=== PATIENT | male | born 1970 | race Caucasian/White ===

== ENCOUNTER 2022-10-04 13:22 | Emergency (ER) | payer OTHER, SELFPAY ==
--- NOTE | ~2022-10-04 | CT_ITS ---
EXAMINATION: CT cervical spine wo con DATE: 10/04/2022 15:04 INDICATION: Midline tenderness at C6. TECHNIQUE: Computed tomography (CT) of the cervical spine was performed without intravenous contrast. The dose-length product was 499 mGy-cm. Automated exposure control and iterative reconstruction tech nique were employed. COMPARISON: None FINDINGS: There is a subtle heterogeneous soft tissue mass involving the posterior elements of C5 pretty suring approximately 3 cm greatest dimension on sagittal images. There is subtle advancement of the m ass anteriorly into the spinal canal causing central canal stenosis. There is lytic destruction of th e C5 spinous process. There is moderate degenerative disc disease and endplate degenerative change at C5-6 and C6-7. Odontoid process is normal. There is multilevel uncinate hypertrophy, most advanced a t C5-6 and C6-7. Craniovertebral junction within normal limits. There are small bilateral supraclavic ular lymph nodes which are nonspecific. Lung apices are unremarkable. IMPRESSION: 1. Subtle mass involving the posterior elements of C5 with lytic destruction and associated central c anal stenosis, suspicious for metastatic disease. Correlate for history of malignancy. Recommend sherly elation with MRI of the cervical spine without and with contrast. Reviewed, dictated and finalized at location A. 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 Subtle mass involving the posterior elements of C5 with lytic destruction an d associated central canal stenosis, suspicious for metastatic disease. Correla te for history of malignancy. Recommend correlation with MRI of the cervical sp ine without and with contrast.
--- NOTE | ~2022-10-04 | XR_ITS ---
EXAMINATION: XR chest 2V DATE: 10/04/2022 15:49 INDICATION: Lytic mass of the spine on CT TECHNIQUE: PA and lateral views of the chest are obtained. COMPARISON: None available FINDINGS: The lungs are free of acute opacities. No pleural effusion or pneumothorax. The cardiomedia stinal silhouette is normal. There is mild thoracic spondylosis. IMPRESSION: 1. No acute cardiopulmonary abnormality. Reviewed, dictated and finalized at location A.
--- NOTE | ~2022-10-04 | CT_ITS ---
EXAMINATION: CT BRAIN W/O DATE: 10/04/2022 18:06 INDICATION: Lytic lesion seen in the cervical spine. Possible metastatic disease. TECHNIQUE: Computed tomography (CT) of the head was performed without intravenous contrast. The dose- length product was 605.33 mGy-cm. Automated exposure control and iterative reconstruction technique w ere employed. COMPARISON: No prior studies for comparison. FINDINGS: Normal brain parenchymal volume for age. Normal ruiz-white differentiation. No acute intrac ranial hemorrhage, infarction, mass or mass effect. No ventriculomegaly or midline shift. Midline sagittal images demonstrate a normal corpus callosum, c raniovertebral junction and sella turcica. Basilar cisterns are patent. Paranasal sinuses and mastoids are pneumatized. No depressed skull fractures. IMPRESSION: 1. No acute intracranial abnormality. Reviewed, dictated and finalized at location A. T CAKE CUTTER
--- NOTE | ~2022-10-04 | CT_ITS ---
EXAMINATION: CT chest abdomen pelvis w con DATE: 10/04/2022 18:21 HIRED HELP INDICATION: Lytic mass involving the cervical spine. Possible metastatic disease. TECHNIQUE: Computed tomography (CT) of the chest, abdomen, and pelvis was performed with 100 cc Omnip aque 350 intravenous contrast. The dose-length product was 1465.02 mGy-cm. Automated exposure control and iterative reconstruction technique were employed. COMPARISON: None FINDINGS: CHEST CT: Heart size is normal. No significant vascular abnormality. No thoracic lymphadenopathy. No significan t pleural or pericardial effusion. There is a 4 mm right upper lobe nodule. There are additional righ t upper lobe nodules measuring 2 mm or less. There is a 3 mm left upper lobe nodule adjacent to the a shadia. No pneumothorax. No focal consolidation. No lytic or blastic lesions are seen. Mild thoracic an d lumbar spondylosis. There is bilateral gynecomastia. ABDOMEN/PELVIS CT: There is a complex heterogeneously enhancing exophytic right renal mass measuring 8 x 6 x 6.4 cm with adjacent neovascularity. This mass is compatible with renal cell carcinoma until proven otherwise. T here is a smaller 9 mm exophytic right renal lesion posteriorly, too small to characterize. There is nonobstructing 3 mm left renal stone. No left renal mass or hydronephrosis. The liver, spleen, pancreas, adrenal glands are unremarkable. Gallbladder is present. Nonobstructive bowel gas pattern. Normal appendix. No significant lymphadenopathy. No abnormal pelvic masses or flui d collections. Prostate gland mildly prominent. IMPRESSION: 1. Large complex exophytic right renal mass measuring up to 8 cm, compatible with renal cell carcinom a until proven otherwise. 2: Small bilateral pulmonary nodules measuring 4 mm or less. These are likely benign, although metas tatic disease is not excluded. Reviewed, dictated and finalized at location A. D HELP IMPRESSION: 1. Large complex exophytic right renal mass measuring up to 8 cm, compatible wi th renal cell carcinoma until proven otherwise. 2: Small bilateral pulmonary nodules measuring 4 mm or less. These are likely benign, although metastatic disease is not excluded.
[2022-10-04 13:25] VITALS: BP 141/97; PULSE 88; RESP 14; TEMP 36.9; O2SAT 100
--- NOTE | 2022-10-04 14:52 | ED.BACK ---
HPI - Back Pain/Injury General Chief Complaint: Back Pain/Injury Stated Complaint: upper back pain X1 week Time Seen by Provider: 10/04/22 14:29 History of Present Illness HPI Narrative: Patient is a 52-year-old male here for evaluation of upper back pain for the past 4 days. Reports he was lifting heavy objects prior to onset of pain. Also believed that he slept with too many pillows. States pain has been getting worse over the past several days, worse with flexion of his neck. Pain also occasionally radiates into his upper extremities described as sharp and shooting. Attempted Tylenol without relief. No fevers, chills, nausea, vomiting, systemic symptoms. Related Data Allergies Allergy/AdvReac Type Severity Reaction Status Date / Time No Known Allergies Allergy Verified 10/04/22 13:23 Review of Systems Review of Systems: Gen.: Denies fevers or chills Eyes: Denies eye pain or visual change ENT: Denies congestion Respiratory: Denies shortness of breath or cough CV: Denies chest pain or palpitations GI: Reports abdominal pain nausea, emesis or diarrhea : denies burning, urgency, frequency or hematuria Musculoskeletal: Reports neck pain Neuro: Denies numbness, tingling, weakness or focal weakness Skin: Denies rash 10 point review of systems negative, other than as per history of present illness, past medical history and other positives and review of systems Exam Narrative: APPEARANCE: Well appearing, no pain in distress, well-nourished. Head: Normocephalic and atraumatic. EYES: PERRLA/EOMI, conjunctivae clear NOSE: No nasal drainage EARS: External ear normal in appearance THROAT: Oropharynx is clear. Mucous membranes are moist. NECK: Tender to palpation along midline of C6, full range of motion in neck notes pain with lateral rotation RESPIRATORY: Airway patent, respirations nonlabored. Clear to auscultation bilaterally, no rales, rhonchi, wheezing. CARDIOVASCULAR: Regular rate and rhythm without murmurs, rubs, or gallops. ABDOMINAL: Normoactive bowel sounds. Soft, nontender, nondistended. No rebound tenderness or guarding. MUSCULOSKELETAL: Extremities are warm and well-perfused. Moves all extremities well. No edema. NEURO: Normal speech. No focal neurologic deficits. SKIN: Skin is warm and dry. No rashes. PSYCHIATRIC: Normal affect/mood. Course Vital Signs Vital signs: Vital Signs Temperature 98.4 F 10/04/22 13:25 Pulse Rate 88 10/04/22 13:25 Respiratory Rate 14 10/04/22 13:25 Blood Pressure 141/97 H 10/04/22 13:25 Pulse Oximetry 100 10/04/22 13:25 Oxygen Delivery Room Air 10/04/22 13:25 Temperature 98.4 F 10/04/22 13:25 Pulse Rate 86 10/04/22 18:29 Respiratory Rate 18 10/04/22 18:29 Blood Pressure 138/88 10/04/22 18:29 Pulse Oximetry 98 10/04/22 18:29 Oxygen Delivery Room Air 10/04/22 13:25 MDM - Back Pain/Injury MDM Narrative Medical decision making narrative: 52-year-old male here for evaluation of atraumatic posterior neck pain over the past several days. Tender to palpation along midline of C5 and C6. CT C-spine shows lytic lesions concerning for metastatic disease. Patient is unaware of any cancer diagnosis and has not seen a doctor in many years. Chest x-ray without acute findings. Spoke with Dr. Mendes, PCP supervisor car installations, who recommends CT brain, chest abdomen pelvis to look for primary malignancy. Findings do show a possible renal cell carcinoma and several lung nodules are likely benign but unable to exclude underlying malignancy. He is endorsing some hematuria. Patient feeling much better after pain medicine in the ED. Had a long discussion with patient about next steps and severity of findings; admission was offered which he declined; feeling much better after pain meds and wants to go home. Agrees with plan for outpatient work-up and understands he needs to follow up with the primary doctor and also Dr. Glasgow for further eval. Return precautions were discuss
[2022-10-04] MEDS: KETOROLAC 30 MG/ML VIAL (*BKC) IM (15:59)
[2022-10-04] MEDS: CYCLOBENZAPRINE HCL 5 MG TABLET PO (16:00)
[2022-10-04] MEDS: HYDROcodone/acetaminophen (*CRX) 5-325 MG TABLET 1 TAB PO (16:17)
[2022-10-04 16:18] VITALS: BP 139/89; PULSE 63; RESP 18; O2SAT 100
[2022-10-04 16:28] LABS: Basophils Absolute Auto 0.1 K/mm3 (0.0-0.1); Basophils Percent Auto 1.1 % (0.2-1.2); Eosinophils Absolute Auto 0.3 K/mm3 (0-0.3); Eosinophils Percent Auto 4.8 % (0-4.4); Hematocrit 42.5 % (42.0-52.0); Hemoglobin 14.3 g/dL (14.0-18.0); Immature Granulocyte Absolute 0.02 K/mm3 (0.00-0.031); Immature Granulocyte Percent A 0.3 % (0-0.5); Lymphocytes Absolute Auto 3.24 K/mm3 (0.9-3.2); Lymphocytes Percent Auto 46.2 % (18.3-44.2); Mean Corpuscular HGB Conc 33.6 g/dl (32-36); Mean Corpuscular Volume 86.2 fl (80-100); Mean Platelet Volume 10.9 fl (7.4-10.4); Monocytes Absolute Auto 0.3 K/mm3 (0.1-0.6); Monocytes Percent Auto 4.7 % (2.6-8.5); Neutrophils Percent Auto 42.9 % (45.5-73.1); Platelet Count Result 165 k/mm3 (150-375); Red Blood Count 4.93 M/mm3 (4.6-6.20); Red Cell Distribution Width 12.9 % (11.5-14.5)
--- NOTE | 2022-10-04 16:42 | PC.NURSE ---
This RN spoke to Vilma via phone per pts permission and updated on pt POC. Vilma will come to pick pt up from ER at time of discharge.
[2022-10-04 16:43] LABS: Alanine Aminotransferase 41 U/L (6-50); Albumin Level 4.3 g/dL (3.5-5.1); Alkaline Phosphatase 73 U/L (38-126); Anion Gap 5 mmol/L (8-16); Aspartate Amino Transferase 34 U/L (17-59); Bilirubin,Total 0.5 mg/dL (0.2-1.3); Blood Urea Nitrogen 20 mg/dL (9-20); Calcium 8.8 mg/dL (8.4-10.2); Carbon Dioxide 27 mmol/L (22-30); Chloride 102 mmol/L (98-107); Estimated CRCL calculation 83 ml/min; Estimated Glomerular Filt Rate > 60; Glucose 114 mg/dL (65-110); Potassium 4.3 mmol/L (3.4-5.0); Sodium 134 mmol/L (137-145)
[2022-10-04 18:29] VITALS: BP 138/88; PULSE 86; RESP 18; O2SAT 98
[2022-10-04] MEDS: MORPHINE SULFATE (*CRX) 15 MG TAB IR PO (19:13)
[2022-10-04 19:25] VITALS: BP 138/79; PULSE 84; RESP 18; TEMP 36.6; O2SAT 99
== END 2022-10-04 19:26 | disposition home or self-care (01) ==
PROVIDERS: Emergency Provider Physician Assistant
DX: M54.2 Cervicalgia (principal); M48.8X2 Other specified spondylopathies, cervical region; N28.89 Other specified disorders of kidney and ureter; R91.8 Other nonspecific abnormal finding of lung field
CPT/HCPCS: 36415; 70450; 71046; 71260; 72125; 74177; 80053; 85025; 96372; 99284; A9270; J1885; Q9967

== ENCOUNTER 2022-10-08 08:19 | Emergency (ER) | payer OTHER, SELFPAY ==
[2022-10-08] VITALS (16 sets, daily range): BP systolic 118–137; BP diastolic 78–96; PULSE 63–84; RESP 12–18; TEMP 36.8; O2SAT 98–100
--- NOTE | ~2022-10-08 | CT_ITS ---
EXAMINATION: CTA chest abdomen pelvis DATE: 10/08/2022 09:42 [employer] INDICATION: Trauma. Chest pain. History of cancer. TECHNIQUE: Computed tomographic angiography (CTA) of the chest, abdomen, and pelvis was performed wit hout and with 100 mL Omnipaque-350 intravenous contrast. The dose-length product was 1318.34 mGy-cm. Maximum intensity projection 3D-reconstructions of the aorta and other arteries were constructed by tammy cruz technologist on a separate workstation. COMPARISON: CT dated 10/04/2022. FINDINGS: CHEST CTA: There is normal caliber aorta without evidence for aneurysm or dissection. The celiac axis, SMA and r enal arteries are widely patent. The ARIANNA is patent. Evaluation for pulmonary nodules limited by motio n artifact. Largest nodule measures 3 mm in the right apex. No pneumothorax. No focal airspace consol idation. No endobronchial lesions. ABDOMEN AND PELVIS CTA: There is mild thoracic and lumbar spondylosis. There is scoliosis. Mild osteoarthritis of the hips. Tammy cruz liver, pancreas, adrenal glands are unremarkable. There is a focal hypervascular lesion in the spl een measuring 8 mm, not appreciated on prior examination, possibly hemangioma. There is a punctate 2 mm nonobstructing left renal stone. There is a complex heterogeneous exophytic right renal mass at th e lower pole measuring 7 x 5.4 x 6.4 cm, consistent with renal cell carcinoma until proven otherwise. There is neovascularity surrounding the mass in the pararenal fat. There is a small 9 mm exophytic r ight renal lesion posteriorly, most likely a cyst. No free air or free fluid. Nonobstructive bowel pa ttern. Gallbladder is present. Nonobstructive bowel pattern. No abnormal pelvic masses or fluid colle ctions. Prostate gland is enlarged. IMPRESSION: 1. No significant interval change from 10/04/2022. 2: Large complex right renal mass without significant change, compatible with renal cell carcinoma. 3: Stable nodules measuring 3 mm or less, most likely benign. Reviewed, dictated and finalized at location B. [employer]
[2022-10-08] MEDS: MORPHINE SULFATE (*CRX) 4 MG/ML INJ IV PUSH (08:45)
[2022-10-08 08:48] LABS: Basophils Absolute Auto 0.1 K/mm3 (0.0-0.1); Basophils Percent Auto 0.8 % (0.2-1.2); Eosinophils Absolute Auto 0.5 K/mm3 (0-0.3); Eosinophils Percent Auto 5.9 % (0-4.4); Hematocrit 43.3 % (42.0-52.0); Hemoglobin 14.3 g/dL (14.0-18.0); Immature Granulocyte Absolute 0.02 K/mm3 (0.00-0.031); Immature Granulocyte Percent A 0.2 % (0-0.5); Lymphocytes Absolute Auto 3.06 K/mm3 (0.9-3.2); Lymphocytes Percent Auto 35.9 % (18.3-44.2); Mean Corpuscular Hemoglobin 29.2 pg (26-34); Mean Corpuscular Volume 88.4 fl (80-100); Mean Platelet Volume 10.6 fl (7.4-10.4); Monocytes Absolute Auto 0.6 K/mm3 (0.1-0.6); Monocytes Percent Auto 6.5 % (2.6-8.5); Neutrophils Absolute Auto 4.3 K/mm3 (1.3-6.7); Neutrophils Percent Auto 50.7 % (45.5-73.1); Platelet Count Result 170 k/mm3 (150-375); Red Cell Distribution Width 12.9 % (11.5-14.5); White Blood Count 8.5 K/mm3 (4.5-10.0)
--- NOTE | 2022-10-08 08:54 | ECG_ITS ---
Measurements Intervals [place] Rate: 71 P: 53 CT: 163 QRS: 42 QRSD: 89 T: 67 QT: 393 QTc: 427 Interpretive Statements SINUS RHYTHM NORMAL ECG NO PREVIOUS ECG AVAILABLE FOR COMPARISON Electronically Signed On 10-08-2022 12:45:52 CORPORATE TRAVEL MANAGER by Ray Pacheco M.D.
[2022-10-08 08:59] LABS: INR 1.2; Prothrombin Time 14.6 Seconds (11.1-14.7)
[2022-10-08 09:00] LABS: Partial Thromboplastin Time 26.4 SECONDS (22.3-36.8)
[2022-10-08 09:01] LABS: Alanine Aminotransferase 35 U/L (6-50); Albumin Level 3.9 g/dL (3.5-5.1); Alkaline Phosphatase 68 U/L (38-126); Anion Gap 5 mmol/L (8-16); Aspartate Amino Transferase 29 U/L (17-59); Bilirubin,Total 0.4 mg/dL (0.2-1.3); Blood Urea Nitrogen 21 mg/dL (9-20); Calcium 8.5 mg/dL (8.4-10.2); Carbon Dioxide 29 mmol/L (22-30); Chloride 101 mmol/L (98-107); Estimated CRCL calculation 99 ml/min; Estimated Glomerular Filt Rate > 60; Glucose 134 mg/dL (65-110); Lipase 126 U/L (23-300); Potassium 3.9 mmol/L (3.4-5.0); Sodium 135 mmol/L (137-145)
[2022-10-08 09:14] LABS: Troponin I < 0.012 ng/mL (0.000-0.034)
--- NOTE | 2022-10-08 11:15 | PC.NURSE ---
Patient report received from [facility]. All questions answered and care of patient assumed.
[2022-10-08 11:40] LABS: Troponin I < 0.012 ng/mL (0.000-0.034)
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
[2022-10-08 15:10] LABS: Troponin I < 0.012 ng/mL (0.000-0.034)
== END 2022-10-08 15:34 | disposition home or self-care (01) ==
PROVIDERS: Emergency Provider Emergency Medicine
DX: R07.89 Other chest pain (principal); C64.9 Malignant neoplasm of unspecified kidney, except renal pelvis
CPT/HCPCS: 36415; 71275; 74174; 80053; 83690; 84484; 85025; 85610; 85730; 93005; 96374; 99284; J2270; Q9967

== ENCOUNTER 2023-04-05 08:14 | Outpatient (CLI) | payer OTHER, SELFPAY ==
--- NOTE | ~2023-04-05 | US_ITS ---
EXAMINATION: US abdomen complete DATE: 04/05/2023 09:49 INDICATION: Chronic hepatitis B, history right renal cell carcinoma TECHNIQUE: Multiple grayscale and Doppler ultrasound images of the abdomen were obtained. COMPARISON: CT, 10/04/2022 FINDINGS: Bowel gas obscures visualization of the pancreas. The visualized portions of the pancreas a re unremarkable. The liver is normal with normal echogenicity and echotexture. There is a minimal miky er surface nodularity. Normal hepatopetal flow in the main portal vein. There is adenomyomatosis of t he gallbladder wall. Cholelithiasis is noted. No pericholecystic fluid is identified. The normal comm on bile duct measures 4 mm. There was no sonographic Sanabria sign. The visualized portions of the aort a and inferior vena cava are normal. The spleen is normal in appearance and measures 11.7 cm. The right kidney is surgically absent. The l eft kidney measures 12.1 x 6.1 x 5.6 cm. The kidneys demonstrate normal parenchymal echogenicity. The re is no hydronephrosis. IMPRESSION: 1. Liver surface nodularity, consistent with cirrhosis. 2. Cholelithiasis. 3. Right nephrectomy. Reviewed, dictated and finalized at location B.
== END 2023-04-05 08:15 | disposition home or self-care (01) ==
DX: B18.1 Chronic viral hepatitis B without delta-agent (principal); B18.2 Chronic viral hepatitis C; K80.20 Calculus of gallbladder without cholecystitis without obstruction
CPT/HCPCS: 76700

== ENCOUNTER 2025-04-13 00:25 | Emergency (ER) | payer OTHER, SELFPAY ==
--- NOTE | ~2025-04-13 | CT_ITS ---
EXAMINATION: CT abdomen pelvis w con DATE: 04/13/2025 03:23 INDICATION: Left flank pain TECHNIQUE: Computed tomography (CT) of the abdomen and pelvis was performed with 100 cc Omnipaque 350 intravenous contrast. The dose-length product was 590.88 mGy-cm. Automated exposure control and iterative reconstruction technique were employed. COMPARISON: CT dated 10/08/2022. FINDINGS: Lung bases unremarkable. Heart size normal. No significant pleural or pericardial effusion. Status post right nephrectomy. Gallbladder is contracted. The liver, spleen, adrenal glands and left kidney are unremarkable. There is left hydroureteronephrosis secondary to obstructing bladder mass, consistent with transitional cell carcinoma until proven otherwise. The mass predominantly involves the left lateral and posterior margins of the bladder. Nonobstructive bowel gas pattern. Normal appendix. There is a new lytic lesion in T11, suspicious for metastatic disease. IMPRESSION: 1. Abnormal bladder mass, compatible with transitional cell carcinoma until proven otherwise. This mass is obstructing with moderate left hydronephrosis. 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 Reviewed, dictated and finalized at location [facility]. IMPRESSION: 1. Abnormal bladder mass, compatible with transitional cell carcinoma until pro lucia otherwise. This mass is obstructing with moderate left hydronephrosis. Prob able metastases to T11.
[2025-04-13 00:26] VITALS: BP 143/83; PULSE 106; RESP 16; TEMP 36.7; O2SAT 100
--- OUTSIDE RECORDS SUMMARY | 2025-04-13 01:41 | XMS_ITS ---
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 Plans to start immunotherapy, likely Pembrolizumab (Medical Oncology, Dr. Mitchell). Prescription sent to initiate antiviral therapy with Entecavir 0.5 mg daily. The goal of HBV Treatment: suppress HBV replication especially in the setting of immunotherapy and decrease liver inflammation and progression to cirrhosis. Patient to remain on antiviral therapy during immunotherapy treatment and for at least 6 months post immunotherapy treatment. Chronic hepatitis C without hepatic coma 023 Assessment & Plan (02/12/2023 3:31 PM CDT): Mr. 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 Patient to start immunotherapy for RCC. He has normal liver function tests. Imaging findings suggestive of hepatic fibrosis. Will obtain Fibroscan to evaluate degree of liver steatosis and fibrosis. Chronic Hepatitis C- Treatment naive, Genotype 1a, 2. He has a low viral load HCV RNA 3,470 IU/ml. This is in the setting of co-infection with Hepatitis B as the dominant infection in this case. Will complete workup and I anticipate initiation of 8-12 weeks of Hepatitis C treatment within the next few weeks. Patient would like to proceed with treatment. I discussed the natural history of chronic hepatitis C, including the potential for progression to cirrhosis, liver failure, development of liver cancer, need for a liver transplant, and . I discussed currently available antiviral agents, including their efficacy and adverse effects. I discussed the technique of liver biopsy and the use of liver histology to assist in the decision to use antiviral agents. I discussed risk factors for transmission, based on blood to blood contact. I recommended not sharing a toothbrush or razor blade. The risk of sexual transmission is less than 1% in a monogamous relationship. However, if there is concern, a condom should prevent transmission of the hepatitis C virus. I discussed the effect of heavy alcohol use on hepatitis C and how the disease can be accelerated. We discussed currently available antiviral therapy, including its efficacy, side effects, and cost. Currently, I see no obvious contraindications to antiviral therapy. Cancer of kidney, right 01/21/2023 Renal mass 01/04/2023 Renal cell adenocarcinoma, right 11/17/2022 Cancer Staging:Clinical stage from 11/17/2022:Stage IV(pM1) - Signed by Chavo Gee MD on 11/17/2022 Metastasis to spinal column 11/02/2022 Left-sided weakness 11/01/2022 Current Treatment and Therapy Plans No current plan information found. Past Treatment and Therapy Plans Oncology Chemotherapy Treatment Plan Name Start Date Discontinue Date Treatment Medications Discontinue Reason Plan Provider Cycles Pembrolizumab 42 Day Cycles 3 02/25/2025 pembrolizumab (KEYTRUDA)pembr olizumab (KEYTRUDA) IVPB in 100 mL Automatic discontinuation of dormant plans Aiden Mitchell MD 1 of 12 cycles completed Radiation Treatments * Course [id number] 11/23/2022 - 11/29/2022 Treatment Period Energy Fraction Dose Fractions Total Dose Plans Planned C3-T2 SPINE 11/23/2022 - 11/29/2022 400 5 / 2,000 Reference Points Delivered C3-T2 SPINE 11/23/2022 - 11/29/2022 2,000 Lifetime Dose Tracking * Chemical Lifetime Dose Automatic Entry Manual Entr y Fluoro Time 32.683 minutes 32.683 minutes 0 minutes Air kerma at the reference point (Ka,r) 1,428.747 mGy 1,428.747 mGy 0 mGy DLP 3,007 mGycm 3,007 mGycm 0 mGycm
--- OUTSIDE RECORDS SUMMARY | 2025-04-13 01:41 | XMS_ITS | Clinical Summary ---
Author Organization [facility] Address [address] [place] [address] Care Team Providers Care Finance Administrator Name Role Phone Unavailable Primary Care Provider Unavailabl e Allergies Active Allergy Reactions Criticality Noted Date Comments Hydromorphone Hallucinations Medium 01/11/2023 Medications multivit,calc,m in/FA/K1/lycop (ONE-A-DAY MEN'S COMPLETE ORAL)Indication s:supplement Take 1 tablet by mouth every morning Active fish oil-dha-epa 1,200-144-216 mg capsuleIndicati ons:supplement Take 1 capsule by mouth every morning Active acetaminophen 500 mg capsuleIndicati ons:Pain Take 2 capsules (1,000 mg total) by mouth every 6 (six) hours 30 tablet 3 Active Additional Information Patient not taking.Reported on 09/10/2024 oxyCODONE (ROXICODONE) 5 mg immediate release tabletIndicatio ns:Pain Take 1 tablet (5 mg total) by mouth every 4 (four) hours as needed for pain 10 tablet 3 Active Additional Information Patient not taking.Reported on 09/10/[address] (PROTONIX) 40 mg EC tablet Take 1 tablet (40 mg total) by mouth daily 30 tablet 5 3 Active Additional Information Patient not taking.Reported on 09/24/2023 alcohol swabs pads, medicated Test daily up to 4 times daily or as directed by provider. Brand can be selected per pharmacy coverage and patient proference. 400 each 3 3 Active insulin NPH (HumuLIN N, NovoLIN N) 100 unit/mL vial for injection Take 15 units subcutaneous TID 15 mL 2 4 Active Additional Information Patient not taking.Reported on 09/10/2024 pen needle, diabetic (TRUEplus Pen Needle) 31 gauge x 5/16 needle USE TO INJECT UP TO FOUR TIMES DAILY DIRECTED. 400 each 3 4 Active HumuLIN N 100 unit/mL (3 mL) pen for injection 4 Active entecavir (BARACLUDE) 0.5 mg tablet TAKE 1 TABLET BY MOUTH DAILY 240 tablet 6 4 Active blood-glucose meter misc Test daily up to 4 times daily or as directed by provider. Brand can be selected per pharmacy coverage and patient proference. 1 each 5 Active insulin glargine (LANTUS) 100 unit/mL (3 mL) pen for injection Inject 25 Units under the skin nightly 15 mL 11 5 Active insulin lispro (HumaLOG) 100 unit/mL pen for injection Inject 8 Units under the skin 3 (three) times a day with meals 15 mL 11 5 Active lancets 33 gauge misc Use to check blood sugar 4 times daily 400 each 5 Active blood glucose diagnostic strip 1 each by other route 4 (four) times a day Use one to check blood sugar before meals and at bedtime 400 strip 5 Active Active Problems Problem Noted Date Diagnosed Date [...] to spinal column 11/02/2022 Left-sided weakness 11/01/2022 Encounters Date Type Department Care Team Description 03/25/2025 Telephone [facility] Endocrinology Metabolism and Lipid [address] [facility] [address] [place] [address] [place] [address] Vanessa Jimenez RMA Warning Letter 03/02/2025 Telephone [facility] Endocrinology Metabolism and Lipid [address] [facility] [address] [place] [address] [place] [address] Salina Loo RN from Last 3 Months Immunizations Immunization Administration Dates Next Due Influenza, Unspecified 08/19/2022(Deferred: Valentina ent Refused) Surgical History Surgery Date Site/Laterality Comments CERVICAL FUSION 10/17/2022 - 11/16/2022 Resection of extra-spinal tumor and C2-T2 fusion TONSILLECTOMY 08/19/1980 - 08/18/1981 Medical History Medical History Date Comments Clear cell adenocarcinoma of kidney, right (HCC) Right renal CA s/p radiation (last 11/2022) 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 Never 01/11/2023 Q2: How many drinks containi ng alcohol do you have on a typical day when you are drinking? Patient does not drink Q3: How often do you have si x or more drinks on one occasion? Never 01/11/2023 Personal Safety Answer Date Recorded Have you ever been in or are you currently in a harmful physical or emotional relationship or is someone making you feel afraid or unsafe? Denies 01/21/2023 Sex and Gender Information Value Date Recorded Sex Assigned at Not on file Legal Sex Male 8:27 PM CDT Gender Identity Not on file Sexual Orientation Straight 11/02/2022 8: 27 AM CDT Obstetrics History Last Filed Vital Signs Vital Sign Reading Time Taken Comments Blood Pressure 130/86 09/10/2024 6:05 PM [employer] BOX TESTER Pulse 77 09/10/2024 6:05 PM [employer] BOX TESTER Temperature 36.5 C (97.7 F) 09/10/2024 6:05 PM AIR BOX TESTER Respiratory Rate 20 09/10/2024 6:05 PM AIR BOX TESTER Oxygen Saturation 98% 09/10/2024 6:05 PM AIR BOX TESTER Inhaled Oxygen Concentration - - Weight 89.8 kg (198 lb) 09/10/2024 6:05 PM AIR BOX TESTER Height 180.3 cm (5' 11) 11/20/2023 1:05 PM CDT Body Mass Index 27.62 11/20/2023 1:05 PM CDT Plan of Treatment Health Maintenance Due Date Last Done Comments Colon Cancer Screening-Colonoscopy 1969 Depression Screening 1969 Prostate Cancer Screening-PSA 1969 Dilated Eye Exam 1969 Foot Exam 1969 DTaP/Tdap/Td Vaccine (1 - Tdap) 1980 Regular Well Visit/Exam 18-64 1987 Pneumococcal vaccine <65 (1 of 2 - PCV) 1988 Zoster Vaccine (1 of 2) 1988 Covid-19 Vaccine (2 - Jansse n risk series) 10/17/2021 09/19/2021 Hemoglobin A1C 12/07/2023 06/07/2023 Albumin Creatinine Ratio, Urine 06/12/2024 Lipid Panel 06/12/2024 06/12/2023 eGFR 11/19/2024 11/20/2023, 06/19, 06/19/2023, Additional history exists Influenza Vaccine (#1) 2025 Hepatitis C Screening Completed 09/24/2023 , 05/13/2023, 05/09/2023, Additional history exists Medical Devices Implanted Type Area Tank Hoop Bender Device Identifier Shelf Expiration Date Model / Serial / Lot [employer] Symmetry Vesolock Large Clip Internal [id number] - [id number] Implanted:Qty: 1 on 01/21/2023 by Rah Pack MD at [facility] Clip Right: Abdomen [employer] [id number] / / [place] [employer] Giancarlo Particle Embolization Pre Filled Foam Vial 2ml Microsphere Contour 250-355um Polyvinyl Alcohol [id number] - [id number] Implanted:Qty: 1 on 11/02/2022 at [facility] [place] [employer] Giancarlo 12/27/2024 [id number] / / [id number] [employer] Perclose 6fr Vascular Closure 20081-75 - [id number] Implanted:Qty: 1 on 11/02/2022 at [facility] [employer] 06/18/2024 1267 3-03 / / [id number] [employer] Connector Spinal Curved Quartex [id number] Titanium 1149.7620 - [id number] Implanted:Qty: 2 on 11/03/2022 by Washington Harmon MD PhD at [facility] Spine Cervical [employer] 11/03/2022 1149.7620 / / [employer] Quartex 4mm Spine Lateral Short Connector Chriss 1149.8052 - [id number] Implanted:Qty: 1 on 11/03/2022 by Washington Harmon MD PhD at [facility] Spine Cervical [employer] 11/03/2022 1149.8052 / / [employer] Inc Allograft Bone Putty 2.5cc 700-025 - [id number] Implanted:Qty: 1 on 11/03/2022 by Washington Harmon MD PhD at [facility] Spine Cervical [employer] [id number] 04/18/2025 700-025 / / [id number] [employer] Inc Allograft Bone Putty 2.5cc 700-025 - [id number] Implanted:Qty: 1 on 11/03/2022 by Washington Harmon MD PhD at [facility] Spine Cervical [employer] Inc [id number] 04/18/2025 700-025 / / [id number] Allosource Canpac Nonpurge Frozen Graft 50cc Bone [id number] - [id number] Implanted:Qty: 1 on 11/03/2022 by Washington Harmon MD PhD at [facility] Spine Cervical [employer] 07/19/2027 [id number] / / [id number] [employer] Quartex Thread Spine Cap Locking 1149.0001 - [id number] Implanted:Qty: 14 on 11/03/2022 by Washington Harmon MD PhD at [facility] Spine Cervical [employer] 11/03/2022 1149.0001 / / [employer] Quartex 3.5mm 12mm Polyaxial Spine Screw Bone Nonsterile Latex 1149.3512 - [id number] Implanted:Qty: 1 on 11/03/2022 by Washington Harmon MD PhD at [facility] Spine Cervical [employer] 11/03/2022 1149.3512 / / [employer] Quartex 3.5mm 14mm Polyaxial Spine Screw Bone Nonsterile Latex 1149.3514 - [id number] Implanted:Qty: 6 on 11/03/2022 by Washington Harmon MD PhD at [facility] Spine Cervical [employer] 11/03/2022 1149.3514 / / [employer] Screw Bone 5.5mm 30mm Quartex Spine Polyax 1149.5530 - [id number] Implanted:Qty: 6 on 11/03/2022 by Washington Harmon MD PhD at [facility] Spine Cervical [employer] 11/03/2022 1149.5530 / / Procedures Procedure Name Priority Date/Time Associated Diagnosis Comments EGFR Routine 11/20/2023 1:03 PM CDT Renal cell adenocarcinoma, right (HCC) LIPID PANEL Routine 06/12/2023 11:52 AM CDT Type 2 diabetes mellitus without complication, without long-term current use of insulin (HCC) ALBUMIN CREATININE RATIO, URINE Routine 06/12/2023 11:52 AM CDT Type 2 diabetes mellitus without complication, without long-term current use of insulin (HCC) POCT HEMOGLOBIN A1C Routine 06/07/2023 1 2:54 PM CDT Renal cell adenocarcinoma, right (HCC) HEPATITIS C RNA, QUANTITATIVE, PCR Routine 12/11/2022 3:58 PM CDT Malignant neoplasm of urinary bladder, unspecified site (HCC) Hepatitis C antibody test positive Hepatitis B antibody positive from Last 3 Months or Most Recently Relevant to Health Maintenance Results * eGFR (11/20/2023 1:03 PM CDT) eGFR 64 >=60 mL/min/1. 73 m2 Comment: Interpretive Data Reference Interval Normal >/= 90 mL/min/1.73m2 Mildly decreased* 60 - 89 mL/min/1.73m2 Mildly to moderately decreased 45 - 59 mL/min/1.73m2 Moderately to severely decreased 30 - 44 mL/min/1.73m2 Severely decreased 15 - 29 mL/min/1.73m2 Kidney Failure < 15 mL/min/1.73m2 *Relative to young adult level Estimated glomerular filtration rate is determined by the 2020 CKD-EPI equation recommended by the National Kidney Foundation (A Unifying Approach to GFR Estimation: Recommendations of the NKF-ASK Task Force on Reassessing the Inclusion of Race in Diagnosing Kidney Disease, JASN 2020). The CKD-EPI equation should not be used for patients with unstable renal function and has not been validated in children and those over 70. Current interpretive data was last reviewed 2021. Testing performed by: [facility], [place] [address] Blood 11/20/2023 1:03 PM CDT 11/20/2023 1:03 PM CDT us Aiden Mitchell MD LAB BLOOD ORDERABLES Final Result Performing Organization Address City/[facility] Co de Phone Number TATIANA [address] Department [place] [address] * (ABNORMAL) Albumin Creatinine Ratio, Urine (06/12/2023 11:52 AM CDT) Albumin Ur 315.7 mg/L TATIANA Comment: Interpretive Data No reference range established. Current interpretive data was last revised 2018. Creatinine Ur 98.5 mg/dL TATIANA Comment: Interpretive Data No reference range established. Current interpretive data was last revised 2018. Albumin Creatinine Ratio, Ur 321(H) 1 - 29 mg/g TATIANA Urine 06/12/2023 11:5 2 AM CDT 06/13/2023 10:07 AM CDT us Frieda Wall MD LAB URINE ORDERABLES Final Re sult Performing Organization Address City/[facility]/ZIP Co de Phone Number TATIANA [id number] Department [place] [address] * Lipid panel (06/12/2023 11:52 AM CDT) Cholesterol 169 30 - 199 mg/dL TATIANA GARCIA Comment: Interpretive Data Ages < or = 19 years Acceptable: <170 mg/dL Borderline high: 170-199 mg/dL High: >or= 200 mg/dL Ages > or = 20 years Desirable: <200 mg/dL Borderline high: 200-239 mg/dL High: >or= 240 mg/dL Literature References: 1. Expert Panel on Integrated Guidelines for Cardiovascular Health and Risk Reduction in Children and Adolescents. Pediatrics 2011;128:S213 2. NCEP Expert Panel. Circulation 2004;110:227 Current Interpretive Data was last revised on 2018. Triglycerides 97 <=149 mg/dL TATIANA GARCIA Comment: Interpretive Data Ages < or = 9 years Acceptable: <75 mg/dL Borderline high: 75-99 mg/dL High: >or= 100 mg/dL Ages 10 to 20 years Acceptable: <90 mg/dL Borderline high: 90-129 mg/dL High: >or= 130 mg/dL Ages > or = 20 years Desirable: <150 mg/dL Borderline high: 150-199 mg/dL High: 200-499 mg/dL Very high: >or= 499 mg/dL Literature References: 1. Expert Panel on Integrated Guidelines for Cardiovascular Health and Risk Reduction in Children and Adolescents. Pediatrics 2011;128:S213 2. NCEP Expert Panel. Circulation 2004;110:227 Current Interpretive Data was last revised on 2018. HDL 62 >=40 mg/dL TATIANA GARCIA Comment: Interpretive Data Ages < or = 19 years Acceptable: >45 mg/dL Borderline low: 40-45 mg/dL Low: <40 mg/dL Ages > or = 20 years Desirable: >or= 60 mg/dL Low: <40 mg/dL Literature References: 1. Expert Panel on Integrated Guidelines for Cardiovascular Health and Risk Reduction in Children and Adolescents. Pediatrics 2011;128:S213 2. NCEP Expert Panel. Circulation 2004;110:227 Current Interpretive Data was last revised on 2018. LDL, calculated 88 <=129 mg/dL TATIANA GARCIA Comment: Interpretive Data Ages < or = 19 years Acceptable: <110 mg/dL Borderline high: 110-129 mg/dL High: >or= 130 mg/dL Ages > or = 20 years Optimal: <100 mg/dL Near optimal: 100-129 mg/dL Borderline high: 130-159 mg/dL High: >160 mg/dL Literature References: 1. Expert Panel on Integrated Guidelines for Cardiovascular Health and Risk Reduction in Children and Adolescents. Pediatrics 2011;128:S213 2. NCEP Expert Panel. Circulation 2004;110:227 Current Interpretive Data was last revised on 2018. Non-HDL Cholesterol 107 mg/dL TATIANA GARCIA Comment: Interpretive Data Ages < or = 19 years Acceptable: <120 mg/dL Borderline high: 120-144 mg/dL High: >145 mg/dL Ages > or = 20 years When triglycerides are >200 mg/dL, Non-HDL cholesterol is a secondary target of therapy with treatment goals that are 30 mg/dL greater than the LDL cholesterol target. Literature References: 1. Expert Panel on Integrated Guidelines for Cardiovascular Health and Risk Reduction in Children and Adolescents. Pediatrics 2011;128:S213 2. NCEP Expert Panel. Circulation 2004;110:227 Current Interpretive Data was last revised on 2018. Chol/HDL ratio 3 TATIANA Blood 06/12/2023 11:5 2 AM CDT 06/13/2023 10:07 AM CDT Narrative TATIANA - 06/13/2023 10:38 AM CDT These lab test should be done fasting. This means do not eat or drink for at least 12 hours prior to getting your blood drawn. Frieda Wall MD LAB BLOOD ORDERABLES Final Re sult TATIANA [id number] Department [place] [address] * POCT hemoglobin A1c (06/07/2023 12:54 PM CDT) Hemoglobin A1C, POC 10.0 % Blood 06/07/2023 12:5 4 PM CDT Frieda Wall MD POINT OF CARE TEST ORDERABLES Final Result * (ABNORMAL) Hepatitis C (HCV) RNA PCR, quantitative (12/11/2022 3:58 PM CDT) [facility] HCV RNA result Detected( A) TATIANA GARCIA Comment: The quantifiable range of this assay is 15 IU/mL to 100,000,000 IU/mL (1.18 log IU/mL to 8.00 log IU/mL). Testing was performed by the [facility] 6800 HCV Test ([employer] Testing performed at [facility] Current Interpretive Data was last revised on 2021 Testing performed by: [facility], [address] [place]., [address] HCV RNA IU/mL 3,470 IUnits/mL TATIANA GARCIA Comment:Testing performed by : [facility], [address] [facility], [address] HCV RNA log IU/mL 3.54 log IUnits/mL TATIANA GARCIA Comment:Testing performed by : [facility], [address] [place]., [address] Blood 12/11/2022 3:58 PM CDT 12/12/2022 1:49 AM CDT us Aiden Mitchell MD LAB MICROBIOLOGY - GENERAL ORDERABLES Final Result TATIANA [address] Department [place] [address] from Last 3 Months or Most Recently Relevant to Health Maintenance Insurance Advance Directives For more information, please contact: [phone] * Full Code (Latest Code Status on File) Date Activated Date Inactivated Comments 01/21/2023 11:17 AM 01/22/2023 5:58 PM * Full Code Date Activated Date Inactivated Comments 11/03/2022 3:02 PM 11/09/2022 4:02 AM * Full Code Date Activated Date Inactivated Comments 11/01/2022 6:07 AM 11/02/2022 1:47 PM
--- NOTE | 2025-04-13 02:09 | ED.GENADULT ---
HPI - General Adult General Chief complaint: Urogenital-Male Stated complaint: cant pee Time Seen by Provider: 04/13/25 01:24 History of Present Illness HPI narrative: Patient is a 54-year-old male who presents to the emergency department this morning complaining of difficulty urinating for the past 2 months. Patient states that he has these episodes of intermittent urinary retention where he feels like he cannot PE. Patient also states that he has been having left flank pain that has been progressively getting worse for the past 2 months. Patient has a past medical history of renal cell carcinoma status post a right nephrectomy. States that he has not followed up with any doctors in the last 2 months since his symptoms started. Patient admits to history of kidney stones and feels as though this may be a kidney stone. Denies any additional symptoms or concerns at this time. Related Data Allergies Allergy/AdvReac Type Severity Reaction Status Date / Time No Known Allergies Allergy Verified 10/08/22 14:59 Review of Systems Review of Systems: All systems are reviewed and are negative unless stated otherwise in the HPI. [facility] Past Medical History Medical History Renal cell carcinoma Surgical History Surgical History No pertinent past surgical history Exam Narrative: General: Alert, awake, afebrile, in no acute distress. HEENT: PERRL, no rhinorrhea, no post nasal drip, oropharynx clear. Neck: Trachea midline, no JVD, no lymphadenopathy. Cardiovascular: Regular rate and rhythm, no murmurs, rubs or gallops, no peripheral edema. Respiratory: Clear to auscultation bilaterally, no tachypnea, no wheezing, no rhonchi, no rubs, no respiratory distress. Abdomen: Soft, nontender, nondistended, no rebound, no guarding, no peritoneal signs. Musculoskeletal: No joint swelling or deformity, normal muscle tone. Skin: No rashes or petechia, no signs of infection. Psychiatric: Alert and oriented, normal behavior and judgment for situation. Neurological: Alert and oriented to person, place, and time. Follows all commands. No focal deficits, speech is clear and fluent. Course Vital Signs Vital signs: Vital Signs Temperature 98.1 F 04/13/25 00:26 Pulse Rate 106 H 04/13/25 00:26 Respiratory Rate 16 04/13/25 00:26 Blood Pressure 143/83 H 04/13/25 00:26 Pulse Oximetry 100 04/13/25 00:26 Oxygen Delivery Room Air 04/13/25 00:26 Temperature 98.0 F 04/13/25 04:31 Pulse Rate 66 04/13/25 04:31 Respiratory Rate 18 04/13/25 04:31 Blood Pressure 122/81 04/13/25 04:31 Pulse Oximetry 98 04/13/25 04:31 Oxygen Delivery Room Air 04/13/25 00:26 Medical Decision Making MDM Narrative Medical decision making narrative: The patient was evaluated by myself in the emergency department. History is obtained from patient who is an independent historian and physical exam was performed. External medical records were reviewed at this time. IV was established and pertinent tests were ordered. Patient was administered 2 mg of IV Toradol 4 mg of IV morphine and 4 mg IV Zofran. Patient was also administered 1 L IV fluid bolus with normal saline. Laboratory results obtained revealing an elevated lipase of 423 otherwise no acute process. Urinalysis revealed hematuria with 4+ blood, greater than 100 RBCs and 1+ bacteria. Imaging studies obtained included CT abdomen and pelvis with IV contrast which was independently interpreted by me revealing right nephrectomy, left-sided hydronephrosis due to obstructive bladder mass likely secondary to bladder cancer, which is pending final radiology interpretation. Patient was informed of these findings at bedside and plan to transfer him to to facility for higher level of care. Differential diagnosis considerations include bladder cancer, kidney stone, pyelonephritis, urinary obstruction. Comorbidities impacting this visit include history of renal cell consult, status post right nephrectomy. I have evaluated and discussed social determinants of health with the patient that could potentially impact subsequent diagnosis and treatment plans. On repeat assessment of the patient, reevaluation revealed that the patient is doing well and is in no acute distress. Patient symptoms have improved since he arrived to our emergency department. Repeat vital signs were all reviewed and noted to be stable. Differential diagnosis and treatment plan were discussed with the patient at bedside. Patient agrees with discussion and after shared medical decision making agrees with transfer. All questions were answered to the patient's satisfaction. [facility] transfer line was contacted at [phone] and transfer was initiated. Did receive a call back at [phone] informing me that after discussing the case with the on-call urologist, Dr. Quintana, he is requesting that the patient be transferred to [facility] as an ED to ED transfer for further evaluation. Patient is well-known to the [facility] in oncology clinic and is known to not follow up with appointments. Spoke with the on-call ED physician Dr. Collins who accepted ED to ED transfer. Critical care time of 45 minutes, exclusive of separately performed procedures, necessary for treating or preventing eminent or life-threatening deterioration of patient's condition of obstructing bladder mass concerning for cancer in transfer to higher level of care, focused on patient care provided personally by me and time spent during initial evaluation, physical examination, ordering and performing treatments and interventions, ordering and reviewing laboratory studies, ordering and reviewing radiographic studies, re-evaluation of the patient's condition, evaluation of the patient's response to treatment, and discussion of patient case with multiple consultants. Vital Signs Vital Signs: Vital Signs Temperature 98.1 F 04/13/25 00:26 Pulse Rate 106 H 04/13/25 00:26 Respiratory Rate 16 04/13/25 00:26 Blood Pressure 143/83 H 04/13/25 00:26 Pulse Oximetry 100 04/13/25 00:26 Oxygen Delivery Room Air 04/13/25 00:26 Temperature 98.0 F 04/13/25 04:31 Pulse Rate 66 04/13/25 04:31 Respiratory Rate 18 04/13/25 04:31 Blood Pressure 122/81 04/13/25 04:31 Pulse Oximetry 98 04/13/25 04:31 Oxygen Delivery Room Air 04/13/25 00:26 Lab Data 04/13/25 02:23 04/13/25 02:23 Labs: Lab Results 04/13/25 04/13/25 Range/Units 01:34 02:23 WBC 10.3 H (4.5-10.0) K/mm3 RBC 4.40 L (4.6-6.20) M/mm3 Hgb 12.5 L (14.0-18.0) g/dL Hct 38.7 L (42.0-52.0) % MCV 88.0 (80-100) fl MCH 28.4 (26-34) pg MCHC 32.3 (32-36) g/dl RDW 12.7 (11.5-14.5) % Plt Count 211 (150-375) k/mm3 MPV 10.8 H (7.4-10.4) fl Immature Gran % (Auto) 0.2 (0-0.5) % Neut % (Auto) 58.5 (45.5-73.1) % Lymph % (Auto) 26.9 (18.3-44.2) % [place] % (Auto) 6.3 (2.6-8.5) % Eos % (Auto) 7.4 H (0-4.4) % Baso % (Auto) 0.7 (0.2-1.2) % Lymph # (Auto) 2.76 (0.9-3.2) K/mm3 [place] # (Auto) 0.7 H (0.1-0.6) K/mm3 Eos # (Auto) 0.8 H (0-0.3) K/mm3 Baso # (Auto) 0.1 (0.0-0.1) K/mm3 Abs Immat Gran (auto) 0.02 (0.00-0.031) K/mm3 Absolute Neuts (auto) 6.0 (1.3-6.7) K/mm3 Absolute Nucleated RBC 0.000 (0.0-0.012) K/mm3 Nucleated RBC % 0.0 (0.0-0.2) % Sodium 137 (137-145) mmol/L Potassium 3.7 (3.4-5.0) mmol/L Chloride 102 (98-107) mmol/L Carbon Dioxide 27 (22-30) mmol/L Anion Gap 8 (4-12) mmol/L BUN 26 H (9-20) mg/dL Creatinine 1.21 (0.7-1.3) mg/dL Estim Creat Clear Calc 66 ml/min Estimated GFR > 60 (59 - ) Glucose 142 H (65-110) mg/dL Calcium 9.2 (8.4-10.2) mg/dL Magnesium 2.1 (1.6-2.3) mg/dL Total Bilirubin 0.3 (0.2-1.3) mg/dL AST 20 (17-59) U/L ALT 12 (6-50) U/L Alkaline Phosphatase 90 (38-126) U/L Total Protein 7.4 (6.3-8.2) g/dL Albumin 4.0 (3.5-5.1) g/dL Lipase 423 H (23-300) U/L Urine Color Red H (Yellow) Urine Appearance Clear (Clear) Urine pH 6.0 (5.0-9.0) Ur Specific [place] 1.030 (1.001-1.035) Urine Protein 3+ H (Negative) mg/dL Urine Glucose (UA) Negative (Negative) mg/dL Urine Ketones Negative (Negative) mg/dL Ur Blood (Man) 4+ H (Negative) Urine Nitrate Negative (Negative) Urine Bilirubin Negative (Negative) Urine Urobilinogen 0.2 (<2.0) mg/dL Leukocyte Esterase Rfl Trace H (Negative) TEOFILO/UL Urine RBC >100 H (0-2) /hpf Urine WBC 4-6 H (0-3) /hpf Urine Bacteria 1+ H (None) /hpf Critical Care Time Critical Care Time Critical Care Time: Yes Total Critical Care Time: 45 (Please refer to [facility] for attestation.) Discharge Plan Discharge Clinical Impression: Hematuria, Bladder cancer, Hydronephrosis of left kidney Patient Disposition: Acute Care Hospital Condition: Stable Patient Language: Scottish Prescriptions: No Action hydrocodone-acetaminophen 5-325 mg tablet 1 tablet PO Q6H PRN (Reason: pain) Qty: 7 0RF Follow-up/Referrals: PHYSICIAN,SILVERSMITH APPRENTICE [Primary Care Provider, Internal Medicine] Time of Disposition: 05:21
[2025-04-13] MEDS: KETOROLAC 15 MG/ML VIAL (*BKC) IV PUSH (02:26)
[2025-04-13] MEDS: SODIUM CHLORIDE 0.9% IV 1,000 ML 999 ML IV CONT (02:26)
[2025-04-13 02:28] LABS: Add Urine Microscopic? YES; Specific Grav Ur 1.030 (1.001-1.035)
[2025-04-13 02:29] LABS: Glucose Urine UA Negative (Negative); Leukocyte Esterase Ur Trace LEU/UL (Negative); Nitrate Urine Negative (Negative)
[2025-04-13 02:32] LABS: Hematocrit 38.7 % (42.0-52.0); Hemoglobin 12.5 g/dL (14.0-18.0); Immature Granulocyte Percent A 0.2 % (0-0.5); Lymphocytes Absolute Auto 2.76 K/mm3 (0.9-3.2); Mean Corpuscular HGB Conc 32.3 g/dl (32-36); Mean Corpuscular Hemoglobin 28.4 pg (26-34); Mean Corpuscular Volume 88.0 fl (80-100); Nucleated Red Blood Cells Absolute Auto 0.000 K/mm3 (0.0-0.012); Nucleated Red Blood Cells Perc 0.0 % (0.0-0.2); Platelet Count Result 211 k/mm3 (150-375); Red Blood Count 4.40 M/mm3 (4.6-6.20); White Blood Count 10.3 K/mm3 (4.5-10.0)
[2025-04-13 02:32] LABS: Appearance Urine Clear (Clear)
[2025-04-13 02:52] LABS: Alanine Aminotransferase 12 U/L (6-50); Albumin Level 4.0 g/dL (3.5-5.1); Alkaline Phosphatase 90 U/L (38-126); Anion Gap 8 mmol/L (4-12); Aspartate Amino Transferase 20 U/L (17-59); Bilirubin,Total 0.3 mg/dL (0.2-1.3); Blood Urea Nitrogen 26 mg/dL (9-20); Calcium 9.2 mg/dL (8.4-10.2); Carbon Dioxide 27 mmol/L (22-30); Chloride 102 mmol/L (98-107); Estimated CRCL calculation 66 ml/min; Estimated Glomerular Filt Rate > 60; Glucose 142 mg/dL (65-110); Lipase 423 U/L (23-300); Magnesium 2.1 mg/dL (1.6-2.3); Potassium 3.7 mmol/L (3.4-5.0); Sodium 137 mmol/L (137-145); Total Protein 7.4 g/dL (6.3-8.2)
[2025-04-13] MEDS: MORPHINE SULFATE (*CRX) 4 MG/ML INJ IV PUSH (04:29)
[2025-04-13] MEDS: ONDANSETRON INJ 4 MG/2 ML VIAL IV PUSH (04:30)
[2025-04-13 04:31] VITALS: BP 122/81; PULSE 66; RESP 18; TEMP 36.7; O2SAT 98
[2025-04-13 06:22] VITALS: BP 146/95; PULSE 65; RESP 18; TEMP 37.1; O2SAT 99
--- NOTE | 2025-04-13 06:36 | PC.NURSE ---
Ambulance came to pickle processor the patient and he decided that he did not want to leave with them but to go home first to shower, lock things up and to tell family what the plan is. ERP made aware and educated patient of severity of leaving and how long it will take to get into [facility]. Pt verbalized understanding and signed AMA form. Анна at [facility] contacted and updated her that the patient will not be coming by EMS.
== END 2025-04-13 06:39 | disposition left against medical advice (07) ==
PROVIDERS: Emergency Provider Emergency Medicine
DX: R31.9 Hematuria, unspecified (principal); C67.9 Malignant neoplasm of bladder, unspecified; N13.30 Unspecified hydronephrosis
CPT/HCPCS: 36415; 74177; 80053; 81001; 83690; 83735; 85025; 96361; 96374; 96375; 99284; J1885; J2270; J2405; J7030; Q9967